=== PATIENT | female | born 1980 | race Caucasian/White ===

== ENCOUNTER 2022-02-17 11:15 | Outpatient (CLI) | payer OTHER, SELFPAY | END 2022-02-22 12:53 | disposition home or self-care (01) | LOC: PHYS 11:17 | PROVIDERS: PCP Student in an Organized Health Care Education/Training Program; Referring Provider Student in an Organized Health Care Education/Training Program; Visit Provider Student in an Organized Health Care Education/Training Program | DX: R20.2 Paresthesia of skin (principal) | CPT/HCPCS: 95885; 95886; 95912 ==